=== PATIENT | male | born 2005 | race African-American/Black ===

== ENCOUNTER 2025-09-15 01:57 | Emergency (ER) | payer OTHER ==
[~2025-09-15] VITALS: Ht 177.8 cm; Wt 93.6 kg
[2025-09-15 06:00] VITALS: TEMP 98.5
[2025-09-15] MEDS: LIDOCAINE 1% MDV 20 ML VIAL SC ONE (06:23)
[2025-09-15 06:30] VITALS: BP 130/65
[2025-09-15 06:45] VITALS: O2SAT 100
== END 2025-09-15 08:30 | disposition home or self-care (01) ==
LOC: M ED 01:57 → EDBD 01:57 → M ED 08:30
DX: S01.112A Laceration without foreign body of left eyelid and periocular area, initial encounter (principal); S02.2XXA Fracture of nasal bones, initial encounter for closed fracture; Y04.0XXA Assault by unarmed brawl or fight, initial encounter; Y92.89 Other specified places as the place of occurrence of the external cause; Y93.89 Activity, other specified; Y99.9 Unspecified external cause status